=== PATIENT | male | born 1975 | race Two or more races ===

== ENCOUNTER 2020-08-20 17:42 | Inpatient (IN) | payer MEDICAID ==
[~2020-08-20] VITALS: Ht 162.6 cm; Wt 69.4 kg
[~2020-08-20 17:42] MED LIST: Folic Acid PO; PANT40TA2 PO; THIA100T13 PO
--- NOTE | 2020-08-20 18:07 | NUR ---
BIBRA TO ER BED 12. AAOX4. NOT IN RESP DISTRESS, BREATHING EVEN AND UNLABORED. BROUGHT IN FOR ABDOMINAL PAIN S/P DRINKING TEQUILA AND VODKA. PT REPORT THAT HE HAVE CIRRHOSIS. PAIN IS 8/10. MD AT BEDSIDE FOR EVAL. AWAITING ORDERS
[2020-08-20 18:25] LABS: BASOPHILS % (AUTO) 1.6 % (0.0-2.0); EOSINOPHILS % (AUTO) 4.6 % (0.0-6.0); HEMATOCRIT 30 % (39-51); HEMOGLOBIN 9.8 g/dL (13.5-17.5); LYMPHOCYTES # (AUTO) 0.4 /CMM (0.8-4.8); LYMPHOCYTES % (AUTO) 22.8 % (20.0-44.0); MEAN CORPUSCULAR HGB CONC 33 g/dl (31.0-36.0); MEAN CORPUSCULAR VOLUME 82 fL (80-96); MONOCYTES # (AUTO) 0.2 /CMM (0.1-1.30); MONOCYTES % (AUTO) 13.4 % (2.0-12.0); NEUTROPHILS % (AUTO) 57.6 % (43.0-81.0); RED BLOOD CELL COUNT(AUTO) 3.64 MIL/uL (4.5-6.0)
[2020-08-20 18:30] LABS: PLATELET COUNT (AUTO) 20 /CMM (150-450); WHITE BLOOD COUNT (AUTO) 1.8 K/uL (4.3-11.0)
[2020-08-20 18:33] LABS: CALCIUM, SERUM 7.4 mg/dL (8.5-10.1); CREATININE 0.6 mg/dL (0.6-1.3); POTASSIUM 3.4 mmol/L (3.5-5.1)
[2020-08-20 18:39] LABS: ALBUMIN 2.2 g/dL (3.4-5.0); BILIRUBIN,DIRECT 3.8 mg/dL (0.0-0.2); BILIRUBIN,TOTAL 4.6 mg/dL (0.2-1.0); TOTAL PROTEIN, SERUM 7.1 g/dL (6.4-8.2)
[2020-08-20 18:41] LABS: BILIRUBIN,URINE SMALL (NEGATIVE); BLOOD, URINE Moderate Ery/uL (NEGATIVE); COLOR,URINE YELLOW (YELLOW); LEUKOCYTE ESTERASE ,URINE Negative (NEGATIVE); NITRITE, URINE Negative (NEGATIVE); PROTEIN,URINE Negative (NEGATIVE); UGLUCOSE Negative (NEGATIVE)
[2020-08-20 18:50] LABS: BACTERIA,URINE Rare /HPF (None Seen); SQUAMOUS EPITHELIAL CELL,UR Few /HPF (None Seen); WBC,URINE NONE SEEN /HPF (0-3)
[2020-08-20 19:08] LABS: BAND % (MANUAL) 1 % (0.0-5.0); EOSINOPHILS % (MANUAL) 5 % (0-4); LYMPHOCYTES % (MANUAL) 20 % (16-48); MONOCYTES % (MANUAL) 10 % (0-11.0); NEUTROPHILS % (MANUAL) 64 (42-76)
--- NOTE | 2020-08-20 19:30 | NUR ---
PT IN CT ON JEANNIE
--- NOTE | 2020-08-20 21:00 | NUR ---
ADMISSION PACKET TURNED INTO ADMITTING DEPT
--- NOTE | 2020-08-20 22:30 | NUR ---
MIKE SALMERON SPEAKING WITH DR. COX REGARDING ADMISSION
--- NOTE | 2020-08-20 22:51 | NUR ---
PT IN BED SLEEPING. NAD NOTED. EASILY ARROUSABLE.
[2020-08-20] MEDS ORDERED: MAG HYDROX/AL HYDROX/SIMETH 30 ML UDC PO PRN (23:00)
[2020-08-20] MEDS ORDERED: Z GUARD REMEDY 2 OZ OINT TP PRN (23:00)
[2020-08-20] MEDS ORDERED: ZOLPIDEM TARTRATE 5 MG TABLET PO PRN (23:00)
[2020-08-20] MEDS ORDERED: MAGNESIUM HYDROXIDE 30 ML UDC PO PRN (23:00)
--- NOTE | 2020-08-21 00:12 | NUR ---
PT RESTING COMFORTABLY IN BED. VITAL SIGNS STABLE. WILL CONTINUE TO MONITOR
[2020-08-21 05:11] LABS: HEMOGLOBIN 10.2 g/dL (13.5-17.5); LYMPHOCYTES # (AUTO) 0.4 /CMM (0.8-4.8); MONOCYTES # (AUTO) 0.2 /CMM (0.1-1.30)
[2020-08-21 05:16] LABS: BASOPHILS % (AUTO) 1.6 % (0.0-2.0); EOSINOPHILS % (AUTO) 3.8 % (0.0-6.0); HEMATOCRIT 31 % (39-51); LYMPHOCYTES % (AUTO) 35.9 % (20.0-44.0); MEAN CORPUSCULAR HGB CONC 33 g/dl (31.0-36.0); MEAN CORPUSCULAR VOLUME 83 fL (80-96); MONOCYTES % (AUTO) 13.9 % (2.0-12.0); NEUTROPHILS # (AUTO) 0.6 /CMM (1.8-8.9); NEUTROPHILS % (AUTO) 44.8 % (43.0-81.0); RED BLOOD CELL COUNT(AUTO) 3.78 MIL/uL (4.5-6.0)
--- NOTE | 2020-08-21 05:17 | NUR ---
INFORMED DR. COX OF WBC 1.2 [address] COX, ADMIT PATIENT TO MS WITH DIAGNOSIS ALCOHOL INTOXICATION
[2020-08-21 05:18] LABS: WHITE BLOOD COUNT (AUTO) 1.2 K/uL (4.3-11.0)
[2020-08-21 05:19] LABS: PLATELET COUNT (AUTO) 19 /CMM (150-450)
--- NOTE | 2020-08-21 05:30 | NUR ---
CALLED NURSING SUP FOR BED
[2020-08-21 05:35] LABS: CALCIUM, SERUM 7.5 mg/dL (8.5-10.1); CREATININE 0.5 mg/dL (0.6-1.3); MAGNESIUM 2.1 mg/dL (1.8-2.4); PHOSPHORUS 4.4 mg/dL (2.5-4.9); POTASSIUM 3.6 mmol/L (3.5-5.1)
--- NOTE | 2020-08-21 05:35 | NUR ---
Patient is resting comfortably in bed with eyes closed. Easily aroused. VSS
[2020-08-21 05:42] LABS: THYROID STIMULATING HORMONE 2.019 uIU/mL (0.358-3.74)
[2020-08-21 05:44] LABS: NEUTROPHILS % (MANUAL) 56 (42-76)
[2020-08-21 05:45] LABS: EOSINOPHILS % (MANUAL) 3 % (0-4); LYMPHOCYTES % (MANUAL) 32 % (16-48); MONOCYTES % (MANUAL) 9 % (0-11.0)
--- NOTE | 2020-08-21 05:45 | NUR ---
Wen denton in EDM - 08/21/20 at [address] COX OF WBC 1.[address] COX, ADMIT PATIENT TO MS WITH DIAGNOSIS ALCOHOL INTOXICATION
--- NOTE | 2020-08-21 06:28 | NUR ---
COVID SWAB COLLLECTED AND SENT TO THE LAB.
[2020-08-21] MEDS ORDERED: PENT400T17 PO (08:03)
[2020-08-21] MEDS ORDERED: SPIR50TA5 PO (08:03)
[2020-08-21] MEDS ORDERED: PROP10TA68 PO (08:03)
--- NOTE | 2020-08-21 08:13 | NUR ---
CALLED NURSING SUP FOR M/S BED. NO BED AVAILABLE AT THE MOMENT. WILL CALL BACK WHEN A BED BECOMES AVAILABLE.
--- NOTE | 2020-08-21 09:23 | NUR ---
Patient is resting comfortably in bed with eyes closed. Easily aroused. VSS
--- NOTE | 2020-08-21 10:37 | NUR ---
PATIENT WILL GO TO MS-110
--- NOTE | 2020-08-21 10:52 | NUR ---
report given to Carlos Enrique SERRATO
--- NOTE | 2020-08-21 11:08 | NUR ---
wheeled patient via gurney accompanied by EMT in no distress. RN at bedside to assume care.
[2020-08-21 11:15] VITALS: BP 134/78
--- NOTE | 2020-08-21 11:15 | NUR ---
RN MED SURG1 PATIENT TRANSPORTED FROM ER IN [facility], RECEIVED REPORT FROM ANNIKA CAMEJO RN, LEFT FOREARM IV INTACT CLEAN DRY FLUSHES WELL, PATIENT WEIGHED AND IS 153LBs, ON ROOM AIR O2 SAT 100%, NO S/S OF DISTRESSS, EGYPTIAN SPEAKING, USING STAFF ON UNIT TO TRANSLATE, IN BED, SAFETY MEASURES IN PLACE, CALL LIGHT WIHTIN REACH, NO WOUNDS NOTED, ONLY COMPLAINT IS PAIN, WILL PROVIDE PAIN MEDICINE ORDERED, DISCUSSING PATIENT ADMISSION HISTORY AND CHARTING ACCORDINGLY, WILL FOLLOW UP WITH MD WITH NEW ORDERS, BED INLOWEST LOCKED POSITION, URINAL WITHIN REACH, UNDERSTANDS PLAN OF CARE. WILL CONTINUE TO MONITOR.
[2020-08-21] MEDS: HYDROCODONE/APAP 5/325MG TABLET PO PRN ×2 (13:27→21:15)
[2020-08-21] MEDS: ONDANSETRON HCL/PF 4 MG/2 ML VIAL IVP PRN (18:12)
--- NOTE | 2020-08-21 19:00 | NUR ---
RN MED SURG1 LEFT FOREARM IV 20 G INTACT CLEAN DRY FLUSHES WELL, ON ROOM AIR O2 SAT 100%, NO S/S OF DISTRESS, ARABIC SPEAKING, USING STAFF ON UNIT TO TRANSLATE, IN BED, SAFETY MEASURES IN PLACE, CALL LIGHT with IN REACH, NO WOUNDS NOTED, ONLY COMPLAINT IS PAIN, GAVE NORCO ORDERED, BED IN LOWEST LOCKED POSITION, URINAL WITHIN REACH AND USING, USED BED BLANCO FOR A BOWEL MOVEMENT, SEIZURE PRECAUTIONS IN PLACE, NO S/S OF DISTRESS.
[2020-08-21 20:00] VITALS: BP 149/89
--- NOTE | 2020-08-21 21:29 | NUR ---
MS-1/POWER CHISEL OPERATOR PT NOTED TO BE SHAKING SUSPECTED ALCOHOL WITHDRAWAL. SPOKE WITH DR. MERCADO ORDER RECEIVED FOR ATIVAN 1MG IVP Q4HR PRN FOR ALCOHOL WITHDRAWAL. WILL CONTINUE TO MONITOR.
[2020-08-21] MEDS ORDERED: LORAZEPAM INJ 2 MG/ML VIAL IV PRN (21:30)
--- NOTE | 2020-08-22 02:26 | NUR ---
MS-1/REPROGRAPHICS TECHNICIAN RECEIVED CALL FROM LAB COVID PCR IS NEGATIVE. RESULT REPORTED TO CHARGE NURSE HEAVEN SERRATO.
[2020-08-22 04:00] VITALS: BP 137/80
--- NOTE | 2020-08-22 08:05 | NUR ---
PT RECEIVED IN BED, AOX3 PORTUGUESE SPEAKING. PT RA NO RESPIRATORY DISTRESS OR SOB. MILD TREMORS NOTED, ATIVAN PREVIOUSLY GIVEN LAST SHIFT. PT AMBULATORY WITH 1X ASSIST, UNSTEADY GAIT. PT CARDIAC DIET, LEFT AC #18 INTACT, NO SIGNS OF INFECTION OR INFILTRATION. PT TRANSFERRED TO [facility]. BED IN LOCKED LOWEST POSITION, CALL LIGHT WITHIN REACH, ALL SAFETY MEASURES IN PLACE. WILL CONTINUE TO MONITOR CLOSELY
[2020-08-22] MEDS: PANTOPRAZOLE 40 MG TABLET.DR PO SCH ×2 (08:37→08:39)
[2020-08-22] MEDS: THIAMINE HCL 100 MG TABLET PO SCH (10:31)
[2020-08-22] MEDS: CHLORDIAZEPOXIDE HCL 25 MG CAPSULE PO SCH ×2 (10:31→16:37)
[2020-08-22] MEDS: FOLIC ACID 1 MG TABLET PO SCH (10:31)
[2020-08-22] MEDS: ONDANSETRON HCL/PF 4 MG/2 ML VIAL IVP PRN ×2 (10:31→17:55)
[2020-08-22 16:00] VITALS: BP 134/91
--- NOTE | 2020-08-22 16:46 | NUR ---
Assembler Installer Structures attempted to speak with the patient however due to COVID-19 precautions patient is currently on isolation. SW attempted to speak to the patient via hospital line, patient did not orange picker machine operator. SW unable to speak to the patient at this time. SW will follow-up with the patient at a later time. SW remains available for all needs regarding this patient.
--- NOTE | 2020-08-22 18:35 | NUR ---
PT 1700 SCHEDULED MED LIBRIUM SHOWN ON MAR A DUE MED. MAR ALSO SHOWS THAT RN ADMINISTERED LIBRIUM AT 1637 IN THE HISTORY TAB. PHARMACY NOTIFIED THAT THE 1700 MED WAS ADMINISTERED AT 1637.
--- NOTE | 2020-08-22 19:00 | NUR ---
SCD PUMPS OFFERED TO PATIENT FOR INTERMITTENT USE ORDERED, PT IS AMBULATORY WITH ASSIST TO BATHROOM
--- NOTE | 2020-08-22 19:15 | NUR ---
RECEIVED PT ON BED AWAKE, ON ROOM AIR SPO2 99% NO SIGN AND SYMPTOMS OF DISTRESS, ABDOMINAL CRAMPING PAIN COMPLAINT INTENSITY OF 8 FL MEDS TO BE GIVEN, HAVE IVF ON LEFT AC# 18 PATENT AND FLUSHED, PT IS VERBAL A/OX4 YORUBA SPEAKING WITH MINIMAL PORTUGUESE, ABLE TO DRINK AND EAT, BED ON LOWEST POSITION AND LOCKED SIDE RAILS UP X2 CALL LIGHT WITHIN REACH WILL CONT TO MONITOR
[2020-08-22] MEDS: HYDROCODONE/APAP 5/325MG TABLET PO PRN (19:29)
--- NOTE | 2020-08-22 19:55 | NUR ---
PT IN BED AOX3 MOSTLY HAITIAN SPEAKING. PT ON RA O2 SATURATION 97%, NO RESPIRATORY DISTRESS OR SOB. PT AMBULATORY WITH 1X ASSIST TO BATHROOM, 1 BM TODAY AND 500 ML OUTPUT VIA URINAL. PT SKIN REMAINS INTACT. PT HAS LAC #18 SL. NO SIGNS OF INFECTION OR INFILTRATION. PT BED IN BED LOCKED LOWEST POSITION, CALL LIGTH WITHIN REACH, ALL SAFETY MEASURES IN PLACE. REPORT GIVEN TO SHANE RN FOR ZARINA. PT NEEDS FOR NAUSEA AND PAIN MEDS ENDORSED TO SHANE
[2020-08-22 20:00] VITALS: BP 133/77
[2020-08-23] VITALS (7 sets, daily range): BP systolic 120–141; BP diastolic 71–99
--- NOTE | 2020-08-23 00:30 | NUR ---
REPORT GIVEN TO MR HEAVEN SERRATO FOR ZARINA
--- NOTE | 2020-08-23 00:45 | NUR ---
MS RN NOTE PT IN BED ASLEEP, AROUSABLE. NO DISTRESS OR DISCOMFORT NOTED. DENIES PAIN. LAC SL #18G INTACT AND PATENT. SIDE RAILS UP X 2 AND CALL LIGHT WITHIN REACH. ALL NEEDS ATTENDED. CONTINUE TO MONITOR HIM.
--- NOTE | 2020-08-23 07:14 | NUR ---
MS RN NOTE PT IN BED AWAKE. NO DISTRES NOTED. ALL NEEDS ATTENDED. ENDORSE TO DAY SHIFT NURSE FOR CONTINUE TO CARE.
--- NOTE | 2020-08-23 08:00 | NUR ---
MS RN NOTE PATIENT IN BED , ALL NEEDS ATTENDED NO SOB NOTED DR MITCHELL AT BEDSIDE AWARE THAT WBC1.2 PATIENT ALERT ORIENTED, LAC HL INTACT AND FLUSHED WELL, WILL MONITOR CLOSELY CALL LIGHT WITHIN REACH, ABLE TO GO BR ,ABLE TO MAKE BM, KEEP CLEAN DRY
[2020-08-23] MEDS: CHLORDIAZEPOXIDE HCL 25 MG CAPSULE PO SCH ×4 (08:06→16:23)
[2020-08-23] MEDS: FOLIC ACID 1 MG TABLET PO SCH (08:06)
[2020-08-23] MEDS: HYDROCODONE/APAP 5/325MG TABLET PO PRN ×2 (08:06→12:59)
[2020-08-23] MEDS: PANTOPRAZOLE 40 MG TABLET.DR PO SCH (08:07)
[2020-08-23] MEDS: THIAMINE HCL 100 MG TABLET PO SCH (08:07)
[2020-08-23] MEDS: LACTULOSE 10 G/15 ML UDC (PYXIS) PO SCH ×3 (10:02→21:30)
--- NOTE | 2020-08-23 11:30 | NUR ---
MS RN NOTE ABLE TO URINATE CAMILO COLOR URINE KEEP CLEAN DRY ,ALL NEEDS ATTENDED ,NO SOB NOTED ABDOMENS STILL DISTENDED TENDER TO TOUCH
--- NOTE | 2020-08-23 13:31 | NUR ---
MS RN NOTE ABLE TO HAVE LUNCH SELF ,NOT IN DITRESS
[2020-08-23 13:54] LABS: BASOPHILS % (AUTO) 1.4 % (0.0-2.0); EOSINOPHILS % (AUTO) 3.6 % (0.0-6.0); HEMATOCRIT 30 % (39-51); HEMOGLOBIN 9.6 g/dL (13.5-17.5); LYMPHOCYTES # (AUTO) 0.3 /CMM (0.8-4.8); LYMPHOCYTES % (AUTO) 18.1 % (20.0-44.0); MEAN CORPUSCULAR HGB CONC 32 g/dl (31.0-36.0); MEAN CORPUSCULAR VOLUME 83 fL (80-96); MONOCYTES # (AUTO) 0.2 /CMM (0.1-1.30); NEUTROPHILS # (AUTO) 0.9 /CMM (1.8-8.9); NEUTROPHILS % (AUTO) 62.9 % (43.0-81.0); RED BLOOD CELL COUNT(AUTO) 3.59 MIL/uL (4.5-6.0)
[2020-08-23 14:04] LABS: WHITE BLOOD COUNT (AUTO) 1.5 K/uL (4.3-11.0)
[2020-08-23 14:05] LABS: PLATELET COUNT (AUTO) 14 /CMM (150-450)
[2020-08-23 15:04] LABS: CALCIUM, SERUM 7.6 mg/dL (8.5-10.1); CREATININE 0.6 mg/dL (0.6-1.3); POTASSIUM 3.4 mmol/L (3.5-5.1)
[2020-08-23 15:10] LABS: ALBUMIN 2.1 g/dL (3.4-5.0); BILIRUBIN,DIRECT 4.3 mg/dL (0.0-0.2); BILIRUBIN,TOTAL 5.7 mg/dL (0.2-1.0); TOTAL PROTEIN, SERUM 6.9 g/dL (6.4-8.2)
[2020-08-23 16:13] LABS: D-DIMER 4.89 mg/L(FEU (0.17-0.50)
--- NOTE | 2020-08-23 18:11 | NUR ---
cable television technician note called blood bank ,cryo not ready yet will f\u ,having dinner, able to eat self, will monitor
--- NOTE | 2020-08-23 18:57 | NUR ---
ORDNANCE ENGINEER NOTE CALLED TO LAB CRYO NOT READY YET ,WILL ENDORSE NEXT SHIFT RN
[2020-08-23 23:39] LABS: EOSINOPHILS % (MANUAL) 5 % (0-4); LYMPHOCYTES % (MANUAL) 17 % (16-48); MONOCYTES % (MANUAL) 14 % (0-11.0); NEUTROPHILS % (MANUAL) 64 (42-76)
[2020-08-24] VITALS: BP 137/84
[2020-08-24] MEDS: LACTULOSE 10 G/15 ML UDC (PYXIS) PO SCH ×4 (02:03→20:21)
--- NOTE | 2020-08-24 04:38 | NUR ---
RN notes Received patient in bed, awake, alert and oriented, sierra leonean speaking with very little yi words known. No distress noted. Breathing even and unlabored. On room air well tolerated with Saturation of 98 -99%. Transfuse two bags of cryoprecipitate, no adverse reaction noted. No complaint of pain or discomfort. Needs attended. Kept clean and dry. Will endorse to next shift for continuity of care.
[2020-08-24 06:03] VITALS: BP 122/76
--- NOTE | 2020-08-24 06:30 | NUR ---
ms treatment specialist notes received pt from [facility] , via wheelchair. Tristanian speaking malina. with needs assistance for safety. no signs of any distress noted. kept him warm and comfortable at all times. will endorse to am nurse .
--- NOTE | 2020-08-24 07:25 | NUR ---
RN notes Patient was transferred to [facility] at about 05:00 in stable condition via wheelchair. Report given to RN.
[2020-08-24 08:00] VITALS: BP 124/83
--- NOTE | 2020-08-24 08:00 | NUR ---
RN NOTES RECEIVED PT ALERT IN BED ALERT AND ORIENTED X 4.ABLE TO MAKE NEEDS KNOWN NO SIGNS OF RESPIRATORY DISTRESS BREATHING EVEN AND UNLABORED. NO PAIN OR DISCOMFORT NOTED OR REPORTED AT THIS TIME. CALL LIGHT WITHIN REACH BED ALARM ON. PT IS MACEDONIAN SPEAKING UNDERSTANDS VERY LITTLE DANISH. PT IS ABLE TO AMBULATE WITH ASSISTANCE. IV ACCESS ON THE LAC NO REDNESS, SWELLING NOTED NO PAIN UPON PALPATION. PT NPO DUE TO CT SCAN OF THE ABDOMEN WITH CONTRAST SCHEDULED FOR THIS MORNING.PT ON ROOM AIR WITH A 02 SATURATION OF 98-99%. WILL CONTINUE TO MONITOR.
[2020-08-24 08:33] LABS: BASOPHILS % (AUTO) 1.2 % (0.0-2.0); EOSINOPHILS % (AUTO) 3.5 % (0.0-6.0); HEMATOCRIT 28 % (39-51); HEMOGLOBIN 9.2 g/dL (13.5-17.5); LYMPHOCYTES # (AUTO) 0.3 /CMM (0.8-4.8); LYMPHOCYTES % (AUTO) 20.8 % (20.0-44.0); MEAN CORPUSCULAR HGB CONC 33 g/dl (31.0-36.0); MEAN CORPUSCULAR VOLUME 84 fL (80-96); MONOCYTES # (AUTO) 0.2 /CMM (0.1-1.30); MONOCYTES % (AUTO) 19.5 % (2.0-12.0); NEUTROPHILS # (AUTO) 0.7 /CMM (1.8-8.9); RED BLOOD CELL COUNT(AUTO) 3.39 MIL/uL (4.5-6.0)
[2020-08-24] MEDS ORDERED: IOHEXOL-350 100 ML VIAL IV ONE (08:38)
[2020-08-24] MEDS ORDERED: IV NS 0.9% 250 ML IV ONE (08:38)
[2020-08-24 08:59] LABS: PLATELET COUNT (AUTO) 18 /CMM (150-450); WHITE BLOOD COUNT (AUTO) 1.2 K/uL (4.3-11.0)
[2020-08-24 09:40] LABS: BILIRUBIN,DIRECT 4.1 mg/dL (0.0-0.2); BILIRUBIN,TOTAL 5.2 mg/dL (0.2-1.0); CALCIUM, SERUM 7.8 mg/dL (8.5-10.1); CREATININE 0.6 mg/dL (0.6-1.3); POTASSIUM 3.5 mmol/L (3.5-5.1); TOTAL PROTEIN, SERUM 6.6 g/dL (6.4-8.2)
[2020-08-24] MEDS ORDERED: POTASSIUM CHLORIDE 20 MEQ TAB.PRT.SR PO ONE (10:00)
[2020-08-24] MEDS: PANTOPRAZOLE 40 MG TABLET.DR PO SCH (11:09)
[2020-08-24] MEDS: FOLIC ACID 1 MG TABLET PO SCH (11:10)
[2020-08-24] MEDS: THIAMINE HCL 100 MG TABLET PO SCH (11:10)
[2020-08-24] MEDS: SPIRONOLACTONE 25 MG TABLET PO SCH (11:23)
[2020-08-24] MEDS: CHLORDIAZEPOXIDE HCL 25 MG CAPSULE PO SCH ×3 (11:23→16:41)
[2020-08-24] MEDS: PROPRANOLOL HCL 10 MG TABLET PO SCH ×3 (11:26→16:34)
[2020-08-24] MEDS: PENTOXIFYLLINE 400 MG TABLET.SA PO SCH ×3 (11:26→16:34)
[2020-08-24 11:37] LABS: D-DIMER 6.95 mg/L(FEU (0.17-0.50)
--- NOTE | 2020-08-24 14:05 | NUR ---
SW met with the patient at bedside. Patient is alert and oriented x3. Patient was sitting at the edge of patient's bed when this SW approached. Patient is primarily Hong Konger speaking and this SW conducted the assessment in Hong Konger. Patient reports that he is currently renting a room at a family friend's house and patient stated that he will return when patient's physician discharges the patient. Patient also corrected primary contact information with this SW. Patient informed this SW that sister Nathalia would be primary contact however at this time patient does not want interdisciplinary team contacting his sister. 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 Patient reports that he is not accepting government aid at this time. Patient reports that for the last 2 weeks he began to drink beer and tequila from the moment he woke up to the moment he went to bed. Patient reported to this SW that this is the reason he was brought to [facility]. Patient denies the use of drugs and cigarettes. Patient denies SI and HI. Patient and SW discussed the need for community resources including drug and alcohol referrals, patient denies these resources. Patient would like to be discharged home and stated that he would need a TAP Card to return home. Patient's thought process was clear and concise. Patient's speech was slow but clear. Patient made appropriate eye contact. SW remains available for all needs regarding this patient.
[2020-08-24 16:04] VITALS: BP 111/70
[2020-08-24] MEDS: ONDANSETRON HCL/PF 4 MG/2 ML VIAL IVP PRN (18:00)
--- NOTE | 2020-08-24 18:21 | NUR ---
RN NOTES PT ASLEEP IN BED ABLE TO MAKE NEEDS KNOWN NO SIGNS OF RESPIRATORY DISTRESS BREATHING EVEN AND UNLABORED. NO PAIN OR DISCOMFORT NOTED OR REPORTED AT THIS TIME. CALL LIGHT WITHIN REACH BED ALARM ON. PT IS ICELANDIC SPEAKING UNDERSTANDS VERY LITTLE MALTESE. PT IS ABLE TO AMBULATE WITH ASSISTANCE. IV ACCESS ON THE RAC NO REDNESS, SWELLING NOTED NO PAIN UPON PALPATION. WILL CONTINUE TO MONITOR.
--- NOTE | 2020-08-24 19:30 | NUR ---
MS/RN OPENING NOTES RECEIVED PATIENT IN BED RESTING. PATIENT IS ALERT AND ORIENTED X 2, PALESTINIAN SPEAKING. NO SIGNS OF RESPIRATORY DISTRESS NOTED. BREATHING IS EVEN AND UNLABORED. PATIENT ABLE TO MAKE NEEDS KNOWN TO STAFF. PATIENT HAS IV ACCESS ON RIGHT AC #20G SL, FLUSHING WELL. STATES NO PAIN AT THIS TIME. SAFETY MEASURES ARE IN PLACE, BED IS LOCKED AND PLACED IN THE LOW POSITION, SIDE RAILS UP X 2, CALL LIGHT IS WITHIN REACH. WILL CONTINUE TO MONITOR THROUGH OUT SHIFT.
[2020-08-24 20:00] VITALS: BP 111/62
[2020-08-25] MEDS: LACTULOSE 10 G/15 ML UDC (PYXIS) PO SCH ×4 (02:09→20:03)
--- NOTE | 2020-08-25 02:10 | NUR ---
MS/RN NOTES PATIENT STATING HE CAN NOT SLEEP OR STAY A SLEEP. PATIENT GIVEN AMBIEN 5 MG PO. V/S ARE STABLE. WILL CONTINUE TO MONITOR.
--- NOTE | 2020-08-25 03:30 | NUR ---
MS/RN NOTES PATIENT GETTING OUT OF BED TRYING TO LEAVE ROOM. PATIENT STATING HE IS NOT SLEEPY AND WANTS TO GO FOR A WALK. PATIENT REORIENTED AND PLACED BACK TO BED. SAFETY MEASURES ARE IN PLACE, BED LOCKED AND PLACED IN LOW POSITION, SIDE RAILS UP X 2, CALL LIGHT WITH REACH, BED ALARM ON. WILL CONTINUE TO MONITOR.
--- NOTE | 2020-08-25 06:45 | NUR ---
MS/RN CLOSING NOTES PATIENT IN BED RESTING. PATIENT IS ALERT AND ORIENTED X 2, MALTESE SPEAKING. NO SIGNS OF RESPIRATORY DISTRESS NOTED. BREATHING IS EVEN AND UNLABORED. PATIENT ABLE TO MAKE NEEDS KNOWN TO STAFF. PATIENT HAS IV ACCESS ON RIGHT AC #20G SL, FLUSHING WELL. STATES NO PAIN AT THIS TIME. ALL NEEDS HAVE BEEN MET DURING SHIFT. SAFETY MEASURES ARE IN PLACE, BED IS LOCKED AND PLACED IN THE LOW POSITION, SIDE RAILS UP X 2, CALL LIGHT IS WITHIN REACH. BED ALARM ON. WILL ENDORSE CARE TO DAY SHIFT NURSE.
--- NOTE | 2020-08-25 07:20 | NUR ---
ms rn received on bed, awake,oriented x2,not in any form of distress, respirations even and unlabored,no sob noted, lungs are diminish, abdomen soft,positive bowel sounds, kacey pain at this time.
[2020-08-25 07:32] LABS: BASOPHILS % (AUTO) 1.1 % (0.0-2.0); EOSINOPHILS % (AUTO) 2.8 % (0.0-6.0); HEMATOCRIT 32 % (39-51); HEMOGLOBIN 10.2 g/dL (13.5-17.5); LYMPHOCYTES # (AUTO) 0.5 /CMM (0.8-4.8); LYMPHOCYTES % (AUTO) 15.2 % (20.0-44.0); MEAN CORPUSCULAR HGB CONC 32 g/dl (31.0-36.0); MEAN CORPUSCULAR VOLUME 84 fL (80-96); MONOCYTES # (AUTO) 0.5 /CMM (0.1-1.30); MONOCYTES % (AUTO) 16.1 % (2.0-12.0); NEUTROPHILS % (AUTO) 64.8 % (43.0-81.0); WHITE BLOOD COUNT (AUTO) 3.1 K/uL (4.3-11.0)
[2020-08-25 07:42] LABS: ALBUMIN 2.1 g/dL (3.4-5.0); BILIRUBIN,TOTAL 5.3 mg/dL (0.2-1.0); CALCIUM, SERUM 7.7 mg/dL (8.5-10.1); CREATININE 0.6 mg/dL (0.6-1.3); POTASSIUM 3.8 mmol/L (3.5-5.1); TOTAL PROTEIN, SERUM 6.7 g/dL (6.4-8.2)
[2020-08-25 08:00] VITALS: BP_SYST 117; BP_SYST 147; BP_DIAS 69; BP_DIAS 88
[2020-08-25 08:22] LABS: IMMUNOGLOBULIN A, SERUM 1709 mg/dL (90-386); IMMUNOGLOBULIN G, SERUM 1788 mg/dL (603-1613); IMMUNOGLOBULIN M, SERUM 145 mg/dL (20-172)
[2020-08-25 08:26] LABS: PLATELET COUNT (AUTO) 37 /CMM (150-450)
--- NOTE | 2020-08-25 09:00 | NUR ---
ms rn breakfast served, due meds given, tolerated well.patient refused to wear patient's gown.
[2020-08-25] MEDS: PENTOXIFYLLINE 400 MG TABLET.SA PO SCH ×3 (09:09→17:18)
[2020-08-25] MEDS: CHLORDIAZEPOXIDE HCL 25 MG CAPSULE PO SCH ×3 (09:09→17:18)
[2020-08-25] MEDS: FERROUS SULFATE (325 MG) 325 MG/TAB TABLET PO SCH ×2 (09:10→17:18)
[2020-08-25] MEDS: FOLIC ACID 1 MG TABLET PO SCH (09:10)
[2020-08-25] MEDS: PROPRANOLOL HCL 10 MG TABLET PO SCH ×3 (09:10→17:18)
[2020-08-25] MEDS: SPIRONOLACTONE 25 MG TABLET PO SCH (09:10)
[2020-08-25] MEDS: THIAMINE HCL 100 MG TABLET PO SCH (09:10)
[2020-08-25] MEDS: PANTOPRAZOLE 40 MG TABLET.DR PO SCH (09:57)
[2020-08-25 10:43] LABS: EOSINOPHILS % (MANUAL) 2 % (0-4); LYMPHOCYTES % (MANUAL) 16 % (16-48); MONOCYTES % (MANUAL) 12 % (0-11.0); NEUTROPHILS % (MANUAL) 70 (42-76)
--- NOTE | 2020-08-25 11:30 | NUR ---
ms rn patient wonders around,close monitoring needed, roving or yarn color checker warned to check patient more often.
--- NOTE | 2020-08-25 12:30 | NUR ---
ms rn patient wonders, went to back exit, guided back to the floor by actionscript developer.
[2020-08-25 13:47] LABS: D-DIMER 10.35 mg/L(FEU (0.17-0.50)
[2020-08-25 16:00] VITALS: BP 110/68
[2020-08-25 16:10] LABS: *ANA ANTI-CENTROMERE B AB <0.2 AI (0.0-0.9); *ANA ANTI-DNA(DS) AB, QN 1 IU/mL (0-9); *ANA ANTI-JO-1 <0.2 AI (0.0-0.9); *ANA ANTICHROMATIN ANTIBODY <0.2 AI (0.0-0.9); *ANA RNP ANTIBODIES 0.4 AI (0.0-0.9); *ANA SJOGREN'S ANTI-SS-A <0.2 AI (0.0-0.9); *ANA SJOGREN'S ANTI-SS-B <0.2 AI (0.0-0.9); *ANAANTI-SCLERODERMA-70 AB <0.2 AI (0.0-0.9); *ANASMITH AB <0.2 AI (0.0-0.9)
--- NOTE | 2020-08-25 18:11 | NUR ---
ms rn on bed, all needs attended.
--- NOTE | 2020-08-25 19:10 | NUR ---
RN MS OPENING NOTES RECEIVED PATIENT IN BED AWAKE ALERT AND ORIENTED 2, REDIRECTABLE. RESPIRATIONS EVEN AND UNLABORED WITH EQUAL RISE AND FALL OF CHEST, DENIES ANY PAIN OR DISCOMFORT AT THIS TIME, IV SITE TO RIGHT AC HOWEVER PATIENT HAS A JACKET ON AND DOES NOT WANT TO REMOVE IT DESPITE ASSESSMENT EXPLANATION. ORIENTED TO STAFF AND CALL LIGHT AND KEPT WITHIN REACH, SAFETY PRECAUTIONS RENDERED, LOW BED AND LOCKED, ALL NEEDS ATTENDED AT THIS TIME, WILL CONTINUE TO MONITOR AND ATTEND TO NEEDS.
[2020-08-25 20:00] VITALS: BP 99/58
[2020-08-26] MEDS: LACTULOSE 10 G/15 ML UDC (PYXIS) PO SCH ×2 (02:12→08:36)
--- NOTE | 2020-08-26 06:58 | NUR ---
RN MS CLOSING NOTES PATIENT IN BED AWAKE ALERT AND ORIENTED X2, REDIRECTABLE. RESPIRATIONS EVEN AND UNLABORED WITH EQUAL RISE AND FALL OF CHEST, DENIES ANY PAIN OR DISCOMFORT AT THIS TIME, REFUSES TO CHANGE INTO GOWN OR REMOVE SHOES,IV SITE TO LEFT FA #22 G INTACT AND PATENT, CALL LIGHT KEPT WITHIN REACH, SAFETY PRECAUTIONS RENDERED, LOW BED AND LOCKED,BED ALARM IN PLACE. ALL NEEDS ATTENDED AT THIS TIME, WILL CONTINUE TO MONITOR AND ATTEND TO NEEDS AND ENDORSE TO NEXT SHIFT.
--- NOTE | 2020-08-26 07:56 | NUR ---
MS/RN OPENING NOTE RECEIVED PATIENT FROM CHURN OPERATOR NURSE PATIENT A/O X2 BELGIAN SPEAKING. PATIENT ON ROOM AIR , TOLERATING WELL. BREATHING EVEN, NON LABORED, NO SOB NOTED. LFA #22 INTACT AND PATENT. SAFETY MEASURES IN PLACE, BED LOCK AND IN LOWEST POSITION, CALL LIGHT WITHIN REACH. WILL CONTINUE TO MONITOR AND ENSURE SAFETY.
[2020-08-26 08:00] VITALS: BP 113/78
[2020-08-26] MEDS: PANTOPRAZOLE 40 MG TABLET.DR PO SCH (08:31)
[2020-08-26 08:32] VITALS: BP 113/78
[2020-08-26] MEDS: CHLORDIAZEPOXIDE HCL 25 MG CAPSULE PO SCH (08:32)
[2020-08-26] MEDS: SPIRONOLACTONE 25 MG TABLET PO SCH (08:32)
[2020-08-26] MEDS: PROPRANOLOL HCL 10 MG TABLET PO SCH (08:32)
[2020-08-26] MEDS: FERROUS SULFATE (325 MG) 325 MG/TAB TABLET PO SCH (08:32)
[2020-08-26] MEDS: PENTOXIFYLLINE 400 MG TABLET.SA PO SCH (08:33)
[2020-08-26] MEDS: FOLIC ACID 1 MG TABLET PO SCH (08:33)
[2020-08-26] MEDS: THIAMINE HCL 100 MG TABLET PO SCH (08:36)
--- NOTE | 2020-08-26 10:52 | NUR ---
MS/RN DISCHARGED PATIENT TO HOME IN STABLE CONDITION, ESCORTED TO LOBBY BY JOYCE. ALL PERSONAL BELONGINGS RETURNED TO PATIENT AND SIGNED OFF BELONGING LIST. HEPLOCK REMOVED, DRESSING APPLIED, NAME BAND REMOVED. PRESCRIPTION FOR NEW MEDICATIONS GIVEN TO PATIENT. EACH MEDICATION EXPLAINED USE AND POSSIBLE SIDE EFFECT. PATIENT STATED UNDERSTANDING. INFORMED PATIENT TO FILL PRESCRIPTION SOON POSSIBLE. PROVIDED WITH EXIT CARE SIGNED BY PATIENT. COPY PROVIDED. ALL QUESTIONS, CONCERNS ADDRESSED AND ANSWERED.
[2020-08-26 12:10] LABS: HAPTOGLOBIN <10 mg/dL (23-355)
[2020-08-28 07:07] LABS: *SPE A/G RATIO 0.6 (0.7-1.7); *SPE ALBUMIN 2.4 g/dL (2.9-4.4); *SPE ALPHA-1-GLOBULIN 0.2 g/dL (0.0-0.4); *SPE ALPHA-2-GLOBULIN 0.3 g/dL (0.4-1.0); *SPE BETA GLOBULIN 1.7 g/dL (0.7-1.3); *SPE GLOBULIN, TOTAL 4.3 g/dL (2.2-3.9); *SPE M-SPIKE Not Observed g/dL (Not Observed)
== END 2020-08-26 10:40 | disposition home or self-care (01) | DRG 775 ==
LOC: ER 17:44 → MERGE 08-21 10:43 → MEDSG1 08-21 10:43 → MED 08-24 05:35
PROVIDERS: ADMIT Student in an Organized Health Care Education/Training Program; ATTEND Internal Medicine
PROC: 30233M1 Transfusion of Nonautologous Plasma Cryoprecipitate into Peripheral Vein, Percutaneous Approach (ICD-10-PCS; principal; 2020-08-23)
DX: F10.229 Alcohol dependence with intoxication, unspecified (principal); E44.0 Moderate protein-calorie malnutrition; D69.6 Thrombocytopenia, unspecified; K57.30 Diverticulosis of large intestine without perforation or abscess without bleeding; E87.6 Hypokalemia; D64.9 Anemia, unspecified; I10 Essential (primary) hypertension; Y90.8 Blood alcohol level of 240 mg/100 ml or more; D61.818 Other pancytopenia; E61.1 Iron deficiency; K70.40 Alcoholic hepatic failure without coma; K76.6 Portal hypertension; R16.1 Splenomegaly, not elsewhere classified; I85.10 Secondary esophageal varices without bleeding; K70.31 Alcoholic cirrhosis of liver with ascites; K70.10 Alcoholic hepatitis without ascites; Z68.26 Body mass index [BMI] 26.0-26.9, adult; D68.8 Other specified coagulation defects; G92 Toxic encephalopathy; K70.11 Alcoholic hepatitis with ascites; R40.2362 Coma scale, best motor response, obeys commands, at arrival to emergency department; R40.2142 Coma scale, eyes open, spontaneous, at arrival to emergency department; R40.2252 Coma scale, best verbal response, oriented, at arrival to emergency department
CPT/HCPCS: 36415; 70450-TC; 74160-TC; 80048-TC; 80053-TC; 80061-TC; 80076-TC; 81001; 82105; 82140-TC; 82728-TC; 82784; 83010; 83540-TC; 83690-TC; 83735-TC; 84100-TC; 84155; 84165; 84443-TC; 85025-TC; 85045-TC; 85396; 85610-TC; 86225; 86235; 86334; 86431-TC; 86706; 86803; 86850-TC; 86880-TC; 87040-TC; 87081-TC; 87340; C9803; G0378; G0480; J2060; J2405; J7050; P9012; Q9967; U0003